=== PATIENT | male | born 1955 | race Caucasian/White ===

== ENCOUNTER → 2017-11-08 09:25 | Outpatient (CLI) | payer OTHER | END | disposition home or self-care (01) | LOC: D.CT 09:25 → EDSEX 09:30 → D.CT 09:30 | DX: I77.810 Thoracic aortic ectasia (principal) ==

== ENCOUNTER → 2018-02-27 10:59 | Outpatient (CLI) | payer OTHER ==
[~2018-02-27] VITALS: Ht 182.9 cm; Wt 88.2 kg
--- NOTE | ~2018-02-27 | HEMODYNAMI ---
PATIENT:NATALIE WOOD MEDICAL RECORD: [id number] : 59 LOCATION:D.CAT ADMISSION DATE: 02/27/18 Generatedon:02/27/201813:49 Patient name: NATALIE WOOD Patient #: [id number] SSN: : 1955 Date of study: 02/27/2018 Page: Of Hemodynamic Procedure Report Patient Data Patient Demographics Procedure consent was obtained First Name: NATALIE Gender: Male Last Name: NINA : 1955 Patient #: [id number] Age: 62 year(s) Race: Unknown Additional ID: [id number] Contact details [address]: [address] [place] [address] State: [place] City: [place] Zip code: [address] Admission Admission Data Admission Date: 02/27/2018 Admission Time: 10:59 Lab Results Lab Result Date: 02/27/2018 Lab Result Time: 0:00 Biochemistry Name Units Result Min Max BUN mg/dl 13 --(--*-)-- 7 18 Creatinine mg/dl 0.8 --(-*--)-- 0.6 1.3 Procedure Procedure Types Cath Procedure Diagnostic Procedure LHC LHC w/Coronaries Procedure Description Procedure Date Procedure Date: 02/27/2018 Procedure Start Time: 13:38 Procedure End Time: 13:48 Procedure Staff Name Function Adrian Bravo MD Performing Physician Roselyn Perez RT Monitor Lindsay Bartholomew RT Scrub Patrick Tafoya RN Nurse Procedure Data Cath Procedure Fluoroscopy Diagnostic fluoroscopy Total fluoroscopy Time: 2.1 time: 2.1 min min Diagnostic fluoroscopy Total fluoroscopy dose: dose: 205.57 mGy 205.57 mGy Contrast Material Contrast Material Type Amount (ml) Isovue 300 68 Entry Location Entry Primary Successful Side Size Upsize Upsize Entry Closure Joshua ccessful Closure Location (Fr) 1 (Fr) 2 (Fr) Remarks Device Remarks Radial Right 6 Fr Mechanical artery Short Compression Estimated blood loss: 5 ml Diagnostic catheters Device Type Used For End Catheter Placement DIAGNOSTIC Chacon 110cm 5 Multi-vessel Fr catheter ([id number]) Angiography Procedure Complications No complications Procedure Medications Medication Administration Route Dosage 0.9% NaCl I.V. 100 ml/hr Oxygen etCO2 Nasal cannula 2 l/min Heparin Flush Bag added to field 2 bags (1000units/500ml NS) Lidocaine 2% added to field 20 Radial Cocktail added to field 1 syringe (Verapomil 2mg/Nitro 400mcg/Heparin 1500units) Versed I.V. 2 mg Fentanyl I.V. 100 mcg Radial Cocktail I.A. 1 syringe (Verapomil 2mg/Nitro 400mcg/Heparin 1500units) Versed I.V. 2 mg Hemodynamics Rest Heart Rate: 62 (bpm) Pressure Samples Time Site Value (mmHg) Purpose Heart Use Rate(bpm) 13:41 LV 109/18,19 Snapshot 79 Gradients Valve Time Site Site Mean SEP/DFP Peak To Heart Use 1 2 (mmHg) (sec/min) Peak Rate (mmHg) (bpm) Aortic 13:42 LV AO 86 Snapshots Pre Cath Intra NCS Post Cath Vital Signs Time Heart Resp SPO2 etCO2 NIBP (mmHg) Rhythm Pain Sedation Rate (ipm) (%) (mmHg) Status Level (bpm) 13:25:08 66 10 100 39.1 131/88(111) NSR 0 (11) 10(A) , No pain 13:29:18 64 19 96 32.3 127/80(96) NSR 0 (11) 10(A) , No pain 13:33:28 62 17 93 30.8 122/83(98) NSR 0 (11) 10(A) , No pain 13:38:39 67 14 98 45.8 130/88(100) NSR 0 (11) 10(A) , No pain 13:42:51 80 17 94 0 110/71(85) NSR 0 (11) 10(A) , No pain 13:47:01 84 12 93 36.8 115/72(88) NSR 0 (11) 10(A) , No pain Medications Time Medication Route Dose Verified Delivered Reason Notes Effectiveness by by 13:23:48 0.9% NaCl I.V. 100 Patrick Patrick Per ml/hr Michelet Tafoya physician RN RN 13:23:57 Oxygen etCO2 2 l/min Patrick Patrick Per Nasal Michelet Tafoya physician cannula RN RN 13:24:09 Heparin Flush added 2 bags Patrick Patrick used for Bag to Michelet Tafoya procedure (1000units/500ml field RN RN NS) 13:24:22 Lidocaine 2% added 20ml Patrick Patrick for local to vial Lorigan Michelet anesthetic field RN RN 13:24:34 Radial Cocktail added 1 Patrick Patrick used for (Verapomil to syringe Michelet Tafoya procedure 2mg/Nitro field USHAS DAI 400mcg/Heparin 1500units) 13:40:18 Versed I.V. 2 mg Patrick Patrick for sedation Michelet Tafoya RN, RN 13:40:26 Fentanyl I.V. 100 mcg Patrick Patrick for sedation Michelet Tafoya RN, RN 13:41:57 Radial Cocktail I.A. 1 Patrick Adrian for (Verapomil syringe Michelet Shelly vasodilation 2mg/Nitro SUHAS QUINTANA 400mcg/Heparin 1500units) 13:44:41 Versed I.V. 2 mg Patrick Adrian for sedation Michelet Bravo RN, MD Procedure Log Time Note 12:44:04 Diagnostic Cath Status : Elective 12:44:18 Patrick Tafoya RN sent for patient. Start room use. 12:44:19 Time tracking: Regular hours (M-F 7:00 - 5:00) 12:44:23 Plan of Care:Hemodynamics will remain stable., Cardiac rhythm will remain stable., Comfort level will be maintained., Respiratory function will remain adequate., Patient/ family verbilizes understanding of procedure., Procedure tolerated without complication., Recovers from procedure without complications.. 12:47:21 Lab Result : BUN 13 mg/dl 12:47:21 Lab Result : Creatinine 0.8 mg/dl 13:12:11 Patient received from Pre/Post Procedure Room to [facility] 2 Alert and oriented. Tansferred to table in Supine position. 13:12:13 Warm blankets applied, and matilde hugger turned on for patient comfort. 13:12:13 Correct patient and procedure confirmed by team. 13:12:15 Signed procedure consent form obtained from patient. 13:12:15 ECG and BP/O2 sat monitors applied to patient. 13:23:48 0.9% NaCl 100 ml/hr I.V. was administered by Patrick Tafoya RN; Per physician; 13:23:57 Oxygen 2 l/min etCO2 Nasal cannula was administered by Patrick Tafoya RN; Per physician; 13:24:08 Baseline sample Acquired. 13:24:08 Vital chart was started 13:24:09 Heparin Flush Bag (1000units/500ml NS) 2 bags added to field was administered by Patrick Tafoya RN; used for procedure; 13:24:12 Rhythm: sinus rhythm 13:24:14 Full Disclosure recording started 13:24:18 H&P Date Dictated: 02/27/2018 Within 30 days and on chart., H&P Addendum completed by physician on day of procedure. (MUST COMPLETE FOR ALL OUTPATIENTS). 13:24:20 Pre-procedure instructions explained to patient. 13:24:21 Pre-op teaching completed and patient verbalized understanding. 13:24:22 Lidocaine 2% 20ml vial added to field was administered by Patrick Tafoya RN; for local anesthetic; 13:24:22 Family in waiting room. 13:24:24 Patient NPO since Midnight. 13:24:25 Is the patient allergic to Iodine/contrast media? No. 13:24:26 Was the patient premedicated? No 13:24:28 Is patient on blood thinner?No 13:24:30 Patient diabetic? No. 13:24:33 Previous problem with sedation/anesthesia? No ? 13:24:34 Radial Cocktail (Verapomil 2mg/Nitro 400mcg/Heparin 1500units) 1 syringe added to field was administered by Patrick Tafoya RN; used for procedure; 13:24:35 Snore? Yes 13:24:36 Sleep apnea? No 13:24:37 Deviated septum? No 13:24:37 Opens mouth fully? Yes 13:24:38 Sticks out tongue? Yes 13:24:40 Airway obstruction? No ? 13:24:43 Dentures? No ? 13:24:47 Pre procedure: right dorsailis pedis pulse 1+ Palpable, but thready & weak; easily obliterated 13:24:49 Pre procedure: left dorsailis pedis pulse 1+ Palpable, but thready & weak; easily obliterated 13:24:51 Patient pain scale 0/10 ?. 13:25:02 IV patent on arrival in left forearm with 0.9% NaCl at [facility]. 13:25:03 Lab results completed and on chart. 13:25:15 Right Radial & Right Groin area was prepped with chlora-prep and draped in sterile fashion 13:25:16 Alarms reviewed by R. N. 13:25:17 Sharps counted by scrub and verified by R.N. 13:38:13 Physician arrived 13:38:13 --------ALL STOP TIME OUT------ 13:38:14 Final Timeout: patient, procedure, and site verified with staff and physician. All members of the team are in agreement. 13:38:15 Right Radial & Right Groin site verified by team. 13:38:18 Physical assessment completed. ASA score P 2 - A patient with mild systemic disease as per Adrian Bravo MD. 13:38:22 Sedation plan: IV Moderate Sedation Medication:Versed, Fentanyl 13:38:27 Use device set Radial Dx or PCI 13:38:28 ACIST Syringe (79944) opened to sterile field. 13:38:28 Medline Cath Pack ([id number]) opened to sterile field. 13:38:29 Bag Decanter (2002S) opened to sterile field. 13:38:29 DIAGNOSTIC WIRE .035 260cm J wire (139461) opened to sterile field. 13:38:29 ACIST Hand Control (91194) opened to sterile field. 13:38:30 ACIST Manifold (81982) opened to sterile field. 13:38:30 Tegaderm 4 x 4 (1626W) opened to sterile field. 13:38:31 MBrace Wrist Support ([id number]) opened to sterile field. 13:38:32 SHEATH 6Fr Prelude Radial ([id number]) opened to sterile field. 13:38:35 Procedure started. 13:38:41 Local anesthetic to right radial artery with Lidocaine 2% by Adrian Bravo MD.INITIAL ACCESS ONLY 13:38:51 A 6 Fr Short sheath was inserted into the Right Radial artery 13:40:02 A DIAGNOSTIC Chacon 110cm 5 Fr catheter (780316) was advanced over the wire and used for Multi-vessel Angiography. 13:40:18 Versed 2 mg I.V. was administered by Patrick Tafoya RN; for sedation; 13:40:26 Fentanyl 100 mcg I.V. was administered by Patrick Tafoya RN; for sedation; 13:41:57 Radial Cocktail (Verapomil 2mg/Nitro 400mcg/Heparin 1500units) 1 syringe I.A. was administered by Adrian Bravo MD; for vasodilation; 13:41:57 LV hemodynamics recorded. 13:41:58 LV gram done using REYES 13:42:26 EF : 55 % 13:42:48 LCA angiography performed. 13:43:46 Injector settings: Ml/sec: 3, Volume: 6, 13:44:41 Versed 2 mg I.V. was administered by Adrian Bravo MD; for sedation; 13:44:50 RCA angiography performed. 13:44:53 Injector settings: Ml/sec: 3, Volume: 6, 13:45:11 Catheter removed. 13:45:17 TR BAND Standard ([id number]) opened to sterile field. 13:45:33 Sheath removed intact; hemostasis achieved with Mechanical Compression to the Right Radial artery. 13:45:35 Procedure ended.(Physican Out) 13:46:17 Fluoroscopy time 02.10 minutes. 13:46:26 Fluoroscopy dose: 205.57 mGy 13:46:26 Flurop Dose total: 205.57 13:46:43 Contrast amount:Isovue 300 68ml. 13:46:46 Sharps counted by scrub and verified by R.N. 13:46:49 TR band inflated with 10cc of air. 13:46:50 Insertion/operative site no bleeding no hematoma. 13:46:53 Post right radial artery:stable 13:46:56 Post Procedure Pulses reassessed and unchanged 13:47:03 Post procedure rhythm: unchanged. 13:47:10 Estimated blood loss: 5 ml 13:47:12 Post procedure instruction explained to patient.Patient verbalizes understanding. 13:47:12 Patient needs reinforcement of post procedure teaching. 13:47:34 Procedure and supply charges have been captured, reviewed, submitted and are correct. 13:47:40 Procedure Complication : No complications 13:47:42 Vital chart was stopped 13:47:43 See physician's report for complete and final results. 13:48:05 Report given to Pre/Post Procedure Room. 13:48:08 Patient transfered to Pre/Post Procedure Room with Stretcher. 13:48:10 Procedure ended. 13:48:10 Full Disclosure recording stopped 13:48:14 End room use (Document Last) Device Usage Item Name Manufacture Quantity Catalog Number Hospital Part Current M inimal Lot# / Charge Number Stock Stock Serial# Code ACIST Syringe Acist 1 15514 820217 066552 612485 2 0 (49262) [employer] Medline Cath Cardinal 1 [id number] 432362 53654 144130 5 Pack Health ([id number]) Bag Decanter Microtek 1 2002S 123162 23230 505409 5 (2001S) Medical Inc. DIAGNOSTIC WIRE St Babar 1 398419 569940 489975 925108 3 0 .035 260cm J wire (736254) ACIST Hand Acist 1 37116 480359 836282 714294 5 Control (03047) [employer] ACIST Manifold Acist 1 97436 791680 736512 399445 5 (29616) [employer] Tegaderm 4 x 4 3M 1 1626W 486507 314536 529393 5 (1626W) MBrace Wrist Advanced 1 140-0250-00 400718 55333 867442 5 Support Vascular ([id number]) Dynamics SHEATH 6Fr Merit 1 [id number] 128860 996400 832283 5 Prelude Radial Medical ([id number]) DIAGNOSTIC Terumo 1 40-4436 986417 215845 150791 5 Chacon 110cm 5 Fr catheter (564086) TR BAND Terumo 1 [id number] 783980 674136 642312 4 0 Standard ([id number]) Signature Audit [place] Stage Time Signature Unsigned Intra-Procedure 02/27/2018 Roselyn Perez 1:49:39 PM RT(R) Signatures Monitor : Roselyn Perez RT Signature : Date : Time : [facility] [address] [place] [address]
--- NOTE | ~2018-02-27 | OP ---
PATIENT NAME: NATALIE WOOD MEDICAL RECORD: [id number] :59 LOCATION:D.CAT ADMISSION DATE: SURGEON: WADE ANGELA MD DATE OF OPERATION: 02/27/2018 PROCEDURE: Left heart catheterization, selective coronary angiography, right radial artery approach. CATHETERS: Radial sheath, [place] catheter. The procedure was well tolerated, the patient was returned to ch, and sheath removed. TR band was placed. FINDINGS: Left ventriculography in 30-degree REYES view: Normal wall motion and normal systolic function. CORONARY ANATOMY: LEFT MAIN: Left main is free of disease. LAD: Free of disease in the diagonal system. CIRCUMFLEX: Free of disease in the marginal system. RIGHT CORONARY ARTERY: Dominant artery, gives rise to PDA, free of disease. IMPRESSION: Normal LV systolic function. Normal coronary anatomy. TRANSINT:[id number] Voice Confirmation ID: [id number] DOCUMENT ID: [id number] WADE ANGELA MD at 1135 CC: [id number] DICTATION DATE: 02/27/18 1350 INSPECTOR WATCH TRAIN: 02/27/18 1359 DEP CLI 02/27/18 [address] [address] [place] [address]
[~2018-02-27 10:59] MED LIST: LIPITOR20 MG PO
[2018-02-27 11:21] VITALS: BP 132/84; Ht 182.9 cm; Wt 88.2 kg
[2018-02-27 11:49] LABS: CALC OSMOLALITY 277 mosm/kg (275-300); CALCIUM 8.7 mg/dL (8.5-10.1); CHLORIDE - SERUM 105 mmol/L (98-107); CREATININE - SERUM 0.8 mg/dL (0.6-1.3); GLUCOSE 96 mg/dL (74-106); POTASSIUM - SERUM 3.9 mmol/L (3.5-5.1); SODIUM 139 mmol/L (136-145); UREA NITROGEN 13 mg/dL (7-18); eGFR NON AFRICAN AMERICAN > 90 mL/min (90-120)
[2018-02-27 13:02] LABS: BASOPHILS 0.4 % (0-2); EOSINOPHILS 2.7 % (0-7); HEMOGLOBIN 15.2 g/dL (13.5-17.5); IMMATURE GRANULOCYTES 0.1 % (0-5); MCH 30.3 pg (26.0-34.0); MCHC 33.8 g/dL (31.0-37.0); MCV 89.6 fL (80.0-100.0); MEAN PLATELET VOLUME 10.2 fL (7.4-10.4); MONOCYTES 5.4 % (2-11); NEUTROPHILS 66.4 % (40-80); PLATELET COUNT 237 10x3/uL (130-400); RBC 5.02 10x6/uL (4.20-6.10); RDW 12.3 % (11.5-14.5); WBC 8.4 10x3/uL (4.8-10.8)
== END | disposition home or self-care (01) ==
LOC: D.CATH 10:59
PROVIDERS: Internal Medicine Interventional Cardiology
DX: I20.9 Angina pectoris, unspecified (principal); Z01.812 Encounter for preprocedural laboratory examination